=== PATIENT | female | born 1965 | race Caucasian/White ===

== ENCOUNTER → 2021-05-21 13:54 | Outpatient (REF) | payer BC, OTHER, SELFPAY | LOC: ANHLAB 13:54 | PROVIDERS: PCP Physician Assistant; Visit Provider Nurse Practitioner | DX: L72.0 Epidermal cyst (principal) | CPT/HCPCS: 88304 ==

== ENCOUNTER 2021-09-18 08:14 | Outpatient (CLI) | payer BC, OTHER, SELFPAY ==
--- NOTE | 2021-09-18 09:18 | ECG_ITS ---
Measurements Intervals [place] Rate: 59 P: 67 NE: 142 QRS: 30 QRSD: 89 T: 26 QT: 395 QTc: 393 Interpretive Statements SINUS BRADYCARDIA BASELINE ARTIFACT- I, III BORDERLINE ECG Electronically Signed On 09-18-2021 9:42:09 INTERNET DESIGNER by Rolan Gil D.O.
[2021-09-18 10:06] LABS: Basophils Absolute Auto 0.1 K/mm3 (0.0-0.1); Basophils Percent Auto 0.8 % (0.2-1.2); Eosinophils Absolute Auto 0.2 K/mm3 (0-0.3); Eosinophils Percent Auto 2.1 % (0-4.4); Hematocrit 43.3 % (37.0-47.0); Hemoglobin 14.2 g/dL (12.0-15.0); Immature Granulocyte Absolute 0.02 K/mm3 (0.00-0.031); Immature Granulocyte Percent A 0.3 % (0-0.5); Lymphocytes Absolute Auto 1.99 K/mm3 (0.9-3.2); Lymphocytes Percent Auto 26.7 % (18.3-44.2); Mean Corpuscular HGB Conc 32.8 g/dl (32-36); Mean Corpuscular Hemoglobin 32.6 pg (26-34); Mean Corpuscular Volume 99.5 fl (80-100); Mean Platelet Volume 9.3 fl (7.4-10.4); Monocytes Absolute Auto 0.7 K/mm3 (0.1-0.6); Monocytes Percent Auto 9.5 % (2.6-8.5); Neutrophils Absolute Auto 4.5 K/mm3 (1.3-6.7); Neutrophils Percent Auto 60.6 % (45.5-73.1); Platelet Count Result 335 k/mm3 (150-375); Red Blood Count 4.35 M/mm3 (4.2-5.4); Red Cell Distribution Width 12.4 % (11.5-14.5); White Blood Count 7.5 K/mm3 (4.5-10.0)
[2021-09-18 10:08] LABS: Albumin Level 4.6 g/dL (3.5-5.1); Estimated Glomerular Filt Rate > 60; Glucose 96 mg/dL (65-110)
[2021-09-18 10:10] LABS: Hemoglobin A1C 5.3 % (<5.7)
[2021-09-18 10:11] LABS: Urine Cotinine NEGATIVE
== END 2021-09-18 08:15 | disposition home or self-care (01) ==
LOC: ANHSURGERY 08:19
PROVIDERS: PCP Physician Assistant; Visit Provider Orthopaedic Surgery
DX: M17.11 Unilateral primary osteoarthritis, right knee (principal); Z01.818 Encounter for other preprocedural examination; R94.31 Abnormal electrocardiogram [ECG] [EKG]
CPT/HCPCS: 80307; 82040; 82565; 82947; 83036; 85025; 87081; 93005

== ENCOUNTER 2022-03-10 07:48 | Outpatient (CLI) | payer BC, OTHER, SELFPAY ==
[2022-03-10 09:10] LABS: Hemoglobin A1C 5.3 % (<5.7)
[2022-03-10 09:10] LABS: Urine Cotinine NEGATIVE
[2022-03-10 09:12] LABS: Albumin Level 4.1 g/dL (3.5-5.1); Estimated Glomerular Filt Rate > 60; Glucose 96 mg/dL (65-110)
[2022-03-10 09:21] LABS: Basophils Absolute Auto 0.1 K/mm3 (0.0-0.1); Basophils Percent Auto 0.8 % (0.2-1.2); Eosinophils Absolute Auto 0.2 K/mm3 (0-0.3); Eosinophils Percent Auto 2.4 % (0-4.4); Hemoglobin 13.5 g/dL (12.0-15.0); Immature Granulocyte Absolute 0.05 K/mm3 (0.00-0.031); Immature Granulocyte Percent A 0.5 % (0-0.5); Lymphocytes Absolute Auto 3.18 K/mm3 (0.9-3.2); Lymphocytes Percent Auto 32.5 % (18.3-44.2); Mean Corpuscular HGB Conc 32.9 g/dl (32-36); Mean Corpuscular Hemoglobin 32.1 pg (26-34); Mean Corpuscular Volume 97.4 fl (80-100); Mean Platelet Volume 9.1 fl (7.4-10.4); Monocytes Percent Auto 9.9 % (2.6-8.5); Neutrophils Absolute Auto 5.3 K/mm3 (1.3-6.7); Neutrophils Percent Auto 53.9 % (45.5-73.1); Platelet Count Result 360 k/mm3 (150-375); Red Blood Count 4.21 M/mm3 (4.2-5.4); Red Cell Distribution Width 12.8 % (11.5-14.5); White Blood Count 9.8 K/mm3 (4.5-10.0)
== END 2022-03-10 07:49 | disposition home or self-care (01) ==
PROVIDERS: PCP Physician Assistant; Visit Provider Orthopaedic Surgery
DX: M17.11 Unilateral primary osteoarthritis, right knee (principal); Z01.818 Encounter for other preprocedural examination
CPT/HCPCS: 80307; 82040; 82565; 82947; 83036; 85025; 87081

== ENCOUNTER 2022-03-24 02:10 | Day surgery (SDC) | payer BC, OTHER, SELFPAY ==
[2022-03-10 07:59] VITALS: BMI 31.5
--- NOTE | 2022-03-10 08:18 | PC.NURSE ---
Report to the Outpatient Waiting Room, entrance under the green pavilion located off [facility], at time _0830 on date _03/24/22 . OR Time:1030 . - You and your visitor will be asked a series of questions to screen for COVID 19 for your protection. - Only one visitor is allowed at this time. - The patient visitor is requested to leave or wait in car when not with patient. - A mask is required within the hospital. Patients may have clear liquids (water, carbonated beverages, clear teas, apple juice) until 3 hours prior to surgery with a maximum of 20 ounces. - No food from midnight until time of surgery - Infants may have breast milk until 4 hours before surgery, infant formula 6 hours prior to surgery. - Children will be allowed to drink immediately following surgery. If applicable, please bring a bottle or sippy cup to assist with drinking. Juice, water, soda, and popsicles are readily available. For infants on formula, please bring formula the day of surgery. Pacifiers are allowed. Take the following medications with a SIP of water the morning of surgery: ___ATENOLOL Medications to discontinue per physician ___ALL VITAMINS AND SUPPLEMENTS 3 DAYS PRE OP Date to take last dose____03/20/22 Please no make-up, nail panamanian, hairspray, perfume, deodorant, or body powder the day of surgery. No jewelry (including any body piercings) or valuables the day of surgery, leave them at home. Please take a shower or bath the night before, or the morning of, surgery with an antibacterial soap. Wear comfortable, loose fitting clothing. Children are encouraged to wear pajamas. - Jewelry must be removed prior to entering the operating room. Rings and piercings that are not removed may be cut off. - The hospital will not accept responsibility for valuables. - Please leave all valuables, including medications, at home the day of surgery. If you are going home after surgery, a licensed form setter/driver must drive you home. - NO public transportation without another adult. - We recommend that an adult stay with you for 24 hours following discharge. - We also recommend that you do not drive, make important decision, drink alcoholic beverages, or take any drugs that were not prescribed by your health care provider for at least 24 hours after your discharge time. For Pediatric surgeries, we recommend two adults accompany the child home (only one inside the building at this time). Follow any additional instructions given to you from your surgeon. If you or anyone in your household have experienced Covid symptoms in the past week, please notify your surgeon or the nurse liaison at the phone number below for possible testing. VERBAL AND WRITTEN instructions given to __PATIENT and asked if any additional questions and then verbalized understanding. Patient advised to call surgeon office or pre surgery nurse liaison [phone] if any additional questions.
[2022-03-10 08:37] VITALS: BP 122/78; PULSE 71; RESP 18; TEMP 37.2; O2SAT 100
[2022-03-24 06:10] VITALS: BP 141/75; PULSE 64; RESP 16; TEMP 36.2; O2SAT 100
[2022-03-24] MEDS: ACETAMINOPHEN 500 MG TABLET 1000 MG PO (06:11)
--- NOTE | 2022-03-24 07:04 | SUR.PREOP ---
Patient arrived to hospital with red raised areas to outer rt calf. Dr Caceres notified and is cancelling surgery due to proximity to surgical site and risk of infection.
--- NOTE | 2022-03-24 07:11 | WPDHPUPDATE1 ---
History and Physical Update Update Date/Time: 03/24/22 07:11 History and Physical has been reviewed, including an updated exam of the patient. Patient has a rash on both legs that looks like poison melanie or oak. Surgery will be postponed. My office will be in touch with her to reschedule. Discussed with patient and her .
== END 2022-03-24 07:25 | disposition home or self-care (01) ==
PROVIDERS: PCP Physician Assistant; Visit Provider Orthopaedic Surgery
DX: M17.11 Unilateral primary osteoarthritis, right knee (principal); L98.9 Disorder of the skin and subcutaneous tissue, unspecified; Z53.09 Procedure and treatment not carried out because of other contraindication
CPT/HCPCS: 99211; A9270; G0463; J0171; J2270; J2795

== ENCOUNTER 2022-03-28 12:32 | Outpatient (CLI) | payer BC, OTHER, SELFPAY | END 2022-03-28 12:33 | disposition home or self-care (01) | LOC: ANHSURGERY 12:35 | PROVIDERS: PCP Physician Assistant; Visit Provider Orthopaedic Surgery | DX: M17.11 Unilateral primary osteoarthritis, right knee (principal); Z01.818 Encounter for other preprocedural examination | CPT/HCPCS: 87081 ==

== ENCOUNTER 2022-04-07 02:49 | Day surgery (SDC) | payer BC, OTHER, SELFPAY ==
--- NOTE | 2022-03-27 10:37 | PC.NURSE ---
Report to the Outpatient Waiting Room, entrance under the green pavilion located off [facility], at time __0900 on date __04/07/22 . OR Time: _1100 . - You and your visitor will be asked a series of questions to screen for COVID 19 for your protection. - Only one visitor is allowed at this time. - The patient visitor is requested to leave or wait in car when not with patient. - A mask is required within the hospital. Patients may have clear liquids (water, carbonated beverages, clear teas, apple juice) until 3 hours prior to surgery with a maximum of 20 ounces. - No food from midnight until time of surgery - Infants may have breast milk until 4 hours before surgery, infant formula 6 hours prior to surgery. - Children will be allowed to drink immediately following surgery. If applicable, please bring a bottle or sippy cup to assist with drinking. Juice, water, soda, and popsicles are readily available. For infants on formula, please bring formula the day of surgery. Pacifiers are allowed. Take the following medications with a SIP of water the morning of surgery: __ATENOLOL Medications to discontinue per physician NONE Date to take last dose Please no make-up, nail setswana, hairspray, perfume, deodorant, or body powder the day of surgery. No jewelry (including any body piercings) or valuables the day of surgery, leave them at home. Please take a shower or bath the night before, or the morning of, surgery with an antibacterial soap. Wear comfortable, loose fitting clothing. Children are encouraged to wear pajamas. - Jewelry must be removed prior to entering the operating room. Rings and piercings that are not removed may be cut off. - The hospital will not accept responsibility for valuables. - Please leave all valuables, including medications, at home the day of surgery. If you are going home after surgery, a licensed truck driver supervisor must drive you home. - NO public transportation without another adult. - We recommend that an adult stay with you for 24 hours following discharge. - We also recommend that you do not drive, make important decision, drink alcoholic beverages, or take any drugs that were not prescribed by your health care provider for at least 24 hours after your discharge time. For Pediatric surgeries, we recommend two adults accompany the child home (only one inside the building at this time). Follow any additional instructions given to you from your surgeon. If you or anyone in your household have experienced Covid symptoms in the past week, please notify your surgeon or the nurse liaison at the phone number below for possible testing. Telephone instructions given to ___PATIENT and asked if any additional questions and then verbalized understanding. Patient advised to call surgeon office or pre surgery nurse liaison [phone] if any additional questions.
--- NOTE | 2022-03-27 10:46 | PC.NURSE ---
PT STATES NO CHANGE IN HEALTH HX SINCE LAST INTERVIEW ON 03/10/22 DID STATE QUESTIONABLE BUG BITES/POISON YOSEF IS BETTER
--- NOTE | 2022-03-28 10:31 | PC.NURSE ---
PT NOTIFIED THAT DR HARKINS REQUESTS REPEAT MRSA SCREENING PRIOR TO SURGERY. SHE RELAYS UNDERSTANDING AND PLANS TO COME IN LATER TODAY FOR THAT. STATES NO CHANGE IN ASSESSMENT EXCEPT THAT LEG BUG BITES OR POISON YOSEF IS IMPROVING AND SHE WILL SEE DR HARKINS IN OFFICE ON 04/03/22 PRIOR TO SURGERY.
[2022-04-07] VITALS (16 sets, daily range): BP systolic 110–139; BP diastolic 61–76; PULSE 46–76; RESP 10–20; TEMP 36.2–37.3; O2SAT 97–100; BMI 31.2
--- NOTE | ~2022-04-07 | XR_ITS ---
EXAM: XR knee RT 2V DATE: 04/07/2022 14:33 HISTORY: RT TOTAL KNEE . COMPARISON: 03/28/2021. FINDINGS: Interval ACL anchor removal and right total knee arthroplasty, with expected postsurgical change in the soft tissues. Hardware is appropriately aligned, without abnormal perihardware lucency. No unexpected radiopaque foreign body. IMPRESSION: Postoperative views, status post right total knee arthroplasty, no radiographic evidence of procedure or hardware related complication. Reviewed, dictated and finalized at location K.
--- NOTE | 2022-04-07 06:26 | WPDANESEPPF ---
Anes - Initial Pre Proc Eval Procedure: Operation Date: 04/07/22 11:00 Proposed Procedures p Right Total Knee Arthroplasty - Gerald Caceres MD Date/Time: 04/07/22 06:26 Surgeon: Gerald Caceres MD Pre Op Diagnosis: OA right knee Patient Data Age: 56 Gender: F Height: Weight: Allergies Allergy/AdvReac Type Severity Reaction Status Date / Time No Known Allergies Allergy Unknown Verified 04/03/22 09:20 Home Medications Medication Instructions Recorded Confirmed Type atenolol 25 mg tablet 25 mg PO DAILY 03/26/21 04/03/22 History acetaminophen 650 mg 1,300 mg PO Q12H PRN Pain 09/18/21 04/03/22 History tablet,extended release (Tylenol Arthritis Pain) Patient hx anesthesia problems: post op nausea/vomiting Family hx anesthesia problems: none Results Review: All pre-operative results and documents have been reviewed as part of the pre-operative evaluation. [facility] Past Medical History Medical History Arthritis High blood pressure Osteoarthritis of right knee Surgical History Surgical History History of appendectomy 2008 History of left hip replacement 04/2011 History of repair of ACL right ACL reconstruction - 03/2009 Family History Family History Mother Hypertension Social History Social History Smoking packs per day: 0.5 Smoking cigarettes per day: 10.0 Years smoked: 25 Smoking pack-years: 12.50 Tobacco type: cigarettes Smoking end date: 10/19/09 Additional smoking assessment comments: DENIES ANY FORM OF TOBACCO USE Alcohol intake: never Additional occupation/education comments: [employer] Gender identity (if verbalized by the patient): Female Spiritual care concerns: No Anes - Eval Final PreProcedure Day of Procedure 04/07/22 06:26 Patient weight: obese Heart: regular rate and rhythm Lungs: clear to auscultation and normal air movement Airway: Mallampati scale class II Neurological: alert and oriented Last oral intake: >/= 8 hours ASA classification: III Emergent: no Anesthetic plan: proceed Anesthesia type and monitoring: regional spinal and standard monitoring Results Review: All pre-operative results and documents have been reviewed as part of the pre-operative evaluation. Informed Consent: The patient's anesthetic plan and its attendant risks and benefits were discussed with the patient/family/POA. Questions were solicited and answers provided to the satisfaction of the patient/family/POA.
[2022-04-07] MEDS: ACETAMINOPHEN 500 MG TABLET 1000 MG PO (09:46)
[2022-04-07] MEDS: LACTATED RINGERS 1,000 ML 30 ML IV CONT ×2 (10:00→14:21)
--- NOTE | 2022-04-07 10:35 | WPDHPUPDATE1 ---
History and Physical Update Update Date/Time: 04/07/22 10:35 History and Physical has been reviewed, including an updated exam of the patient. There are NO changes in the patient's condition. Risks, benefits, and alternatives have been discussed and questions answered. Patient agrees to proceed with procedure.
[2022-04-07] MEDS: TRANEXAMIC ACID 1,000MG/ISO100 1,000 MG/100 ML BAG 200 MG IVPB (11:00)
--- NOTE | 2022-04-07 11:05 | WPDANESPNB ---
Anes - Peripheral Nerve Block Date/Time: 04/07/22 11:05 I have discussed with the patient/family/POA the placement of a peripheral nerve block for post-operative pain management, including associated risks, benefits, complications, and side effects. Alternative methods of post-operative analgesia were detailed. Questions were solicited and answers provided to the satisfaction of the patient/family/POA. Time-Out: A pre-procedural Time-Out was completed immediately before starting the procedure and confirmed: Patient Identification, Site, Procedure, Patient Position and the Availability of Requisite Equipment. Clinical Indications: Acute post-operative pain management requested by the operative surgeon. Nerve Block Insertion Note Anes-nerve block: adductor canal right Patient position: supine Skin prep: chlorhexidine Needle: 22 gauge, stimulating, insulated echogenic needle. Needle length: 80 mm Technique: ultrasound Injectate: bupivacaine 0.5% with epi 5 mcg/ml (30cc - no epi) Observations: tolerated well Complications: none Procedure start time:: 1100 Procedure end time:: 3
[2022-04-07] MEDS: ceFAZolin 2 GM/D5W 50 ML 2 GM/50 ML BAG IVPB ×2 (11:35→19:02)
--- NOTE | 2022-04-07 14:06 | W.PM.PROC2 ---
Procedure Note - Detailed Date of Procedure 04/07/22 Pre-op Diagnosis OA right knee Post-op Diagnosis Same Procedure Performed Right total knee replacement Surgeon Gerald Caceres MD Manager Social Shiloh Germain Anesthesia Regional and Spinal Description of Procedure The patient was identified and proper site identified. In the preop holding area the anesthesia team performed a right-sided sub sartorial block after which the patient was taken to the operating room and transferred to the OR table positioning supine taking care to pad the torso and extremities. After spinal anesthetic was administered a nonsterile tourniquet was placed high on the right thigh. The right lower extremity was prepped and draped in the usual sterile fashion. The extremity was exsanguinated and with the knee flexed tourniquet was inflated to 300 mmHg remaining up for approximately 72 minutes. An anterior midline incision was made and a modified medial parapatellar approach was used. Infra and suprapatellar fat pads were excised. Patella was resected leaving 15 mm thickness and prepared for the size 31 round three peg component. Using the intramedullary guide the distal femur was cut in the proper orientation for the size 65 femoral component. Using the extramedullary guide the tibia was cut perpendicular to the long axis protecting collateral ligaments and popliteal structures. It was sized to a 67. Flexion and extension gaps were balanced. Trial reduction was undertaken and the weight-bearing line was noted to passed through the center of the joint. Proximal tibia was drilled and punched in the proper orientation for the real component. Trial components were removed. The bone surfaces were washed with pulsatile lavage and dried. The real components were cemented simultaneously. The knee was held in extension and the patella held clamped until the cement had cured. Excess cement was removed from the joint. After trialing it was determined that the 10 mm insert gave full range of motion from 0-120 degrees of flexion and the patella tracked in the femoral groove with no lift-off. After final lavage the joint the real 10 E poly insert was placed and secured with a locking bar. A Betadine and saline wash was placed into the wound and allowed to sit for approximately 3 minutes and then evacuated. Periarticular tissues were infiltrated with 60 cc of the arthroplasty solution. Surgicel powder was used for supplemental hemostasis. The extensor mechanism was repaired with #2 Vicryl suture and 0 looped PDS suture. Subcu was reapproximated with 3-0 Monocryl and 2-0 Quill with tissue adhesive the skin. A sterile dressing was applied. She tolerated the procedure well, was awakened and extubated, transferred to the bed and was taken to recovery area in stable condition. There were no known intraoperative complications. Perioperative antibiotics were administered. Estimated Blood Loss 50 Tourniquet Time 72 Drains No Packing No Pathology None sent Complications No immediate complications Condition Stable
[2022-04-07] MEDS: fentaNYL CITRATE INJ (*CRX) 100 MCG/2 ML VIAL 25 MCG IV PUSH (14:34)
[2022-04-07] MEDS: ONDANSETRON INJ 4 MG/2 ML VIAL IV PUSH (16:03)
[2022-04-07] MEDS: SODIUM CHLORIDE 0.9% IV 1,000 ML 125 ML IV CONT (16:54)
[2022-04-07] MEDS: oxyCODONE/ACETAMINOPHEN (*CRX) 5-325 MG TABLET 1 TABLET PO ×2 (17:07→21:09)
[2022-04-07] MEDS: SENNA/DOCUSATE SODIUM TABLET 2 TAB PO (17:16)
[2022-04-07] MEDS: KETOROLAC 15 MG/ML VIAL (*BKC) IV PUSH ×2 (18:06→23:44)
[2022-04-07] MEDS: oxyCODONE HCL (*CRX) 5 MG TAB IR PO (19:01)
[2022-04-07] MEDS: FAMOTIDINE 20 MG TABLET PO (22:39)
[2022-04-08] MEDS: oxyCODONE/ACETAMINOPHEN (*CRX) 5-325 MG TABLET 1 TABLET PO ×2 (01:20→13:01)
[2022-04-08 03:36] VITALS: BP 115/56; PULSE 72; RESP 20; TEMP 36.2; O2SAT 98
[2022-04-08] MEDS: ceFAZolin 2 GM/D5W 50 ML 2 GM/50 ML BAG IVPB ×2 (03:37→11:55)
--- NOTE | 2022-04-08 03:55 | PC.NURSE ---
Pt has not urinated since lo removal at 1700 (04/07), pt bladder scan at 0355 (04/08) shows max of 267ml
[2022-04-08] MEDS: SODIUM CHLORIDE 0.9% IV 500 ML 999 ML IV CONT (05:29)
[2022-04-08] MEDS: ONDANSETRON INJ 4 MG/2 ML VIAL IV PUSH (05:29)
[2022-04-08 05:43] LABS: Hematocrit 33.3 % (37.0-47.0); Hemoglobin 10.7 g/dL (12.0-15.0); Mean Corpuscular HGB Conc 32.1 g/dl (32-36); Mean Corpuscular Hemoglobin 31.8 pg (26-34); Mean Corpuscular Volume 98.8 fl (80-100); Mean Platelet Volume 9.3 fl (7.4-10.4); Platelet Count Result 240 k/mm3 (150-375); Red Blood Count 3.37 M/mm3 (4.2-5.4); Red Cell Distribution Width 12.7 % (11.5-14.5); White Blood Count 14.3 K/mm3 (4.5-10.0)
[2022-04-08 05:55] LABS: Anion Gap 1 mmol/L (8-16); Blood Urea Nitrogen 10 mg/dL (7-17); Calcium 7.8 mg/dL (8.4-10.2); Carbon Dioxide 26 mmol/L (22-30); Chloride 101 mmol/L (98-107); Estimated CRCL calculation 104 ml/min; Estimated Glomerular Filt Rate > 60; Glucose 113 mg/dL (65-110); Potassium 3.6 mmol/L (3.4-5.0); Sodium 128 mmol/L (137-145)
--- NOTE | 2022-04-08 06:07 | PC.NURSE ---
Dr Caceres notified pt experiencing N/V and has not urinated since removal of lo catheter. Order received for 500ml NS bolus, zofran PRN, BMP and CBC lab draw.
[2022-04-08] MEDS: KETOROLAC 15 MG/ML VIAL (*BKC) IV PUSH ×2 (06:11→11:55)
[2022-04-08 09:44] VITALS: PULSE 75
[2022-04-08] MEDS: RIVAROXABAN 10 MG TABLET PO (09:44)
[2022-04-08] MEDS: atenoloL 25 MG TABLET PO (09:44)
[2022-04-08] MEDS: FAMOTIDINE 20 MG TABLET PO (09:45)
[2022-04-08 10:11] VITALS: BP 99/50; PULSE 79; RESP 16; TEMP 36.3; O2SAT 100
--- NOTE | 2022-04-08 11:53 | WPDANESPN ---
Anes - Prog Note Post-Op Date/Time: 04/08/22 11:53 Cardiovascular status: normal Respiratory status: normal Airway patency: baseline Mental status: baseline Post-Op hydration status: normal Vital Signs: Last Vital Signs Temp 97.4 F L 04/08/22 10:11 Pulse 79 04/08/22 10:11 Resp 16 04/08/22 10:11 BP 99/50 L 04/08/22 10:11 Pulse Ox 100 04/08/22 10:11 O2 Del Method Room Air 04/08/22 08:28 Pain Score (VAS): 6 I/O: Intake & Output 04/07/22 04/08/22 04/08/22 23:59 07:59 15:59 Intake Total 400 2040 200 Output Total 300 Balance 400 2040 -100 Laboratory Tests 04/08/22 05:26 04/08/22 05:26 04/08/22 04/08/22 05:26 05:26 WBC 14.3 H RBC 3.37 L Hgb 10.7 L Hct 33.3 L MCV 98.8 MCH 31.8 MCHC 32.1 RDW 12.7 Plt Count 240 MPV 9.3 Sodium 128 L Potassium 3.6 Chloride 101 Carbon Dioxide 26 Anion Gap 1 L BUN 10 Creatinine 0.60 L Estim Creat Clear Calc 104 Estimated GFR > 60 Glucose 113 H Calcium 7.8 L Patient Feedback: Patient satisfied with anesthetic care. Other Findings: pt states nerve block receded approx 1600. verbalized poor relief from block
--- NOTE | 2022-04-08 11:59 | PM.DS ---
DS: Admitting Diagnosis Discharge Date 04-08-2022 Admitting Diagnosis right knee osteoarthritis DS: Discharge Diagnosis Discharge Diagnosis (1) Status post total right knee replacement: Code(s): Z96.651 - Presence of right artificial knee joint Status: Acute Plan 56-year-old female postop day 1 after total right knee replacement with Dr. Caceres. She did have some trouble urinating after the Mauricio catheter was removed which she was given a 500 mL bolus of fluid and has started to urinate this morning. She is also feeling somewhat nauseous so I will send her home with some Zofran as needed. Plan to follow-up in 2 weeks with wound check. She was informed to call our office with any further questions or concerns prior to this next appointment. DS: Summary Hospital Course Reason for hospitalization: Observation after outpatient procedure Hospital Course: 56-year-old female who underwent right total knee replacement with Dr. Caceres on 04/07/2022. She was admitted for observation and saw therapy this morning and plan to see her again this afternoon prior to discharge. She did have some troubles with urination after the Mauricio catheter was removed but has started to urinate this morning. Labs were checked this morning which shows normal kidney function. 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 Status at Discharge Functional status at discharge: uses cane/walker Overall status at discharge: patient is progressing back to baseline Time Spent with Patient Time attestation: Total time spent providing and/or coordinating discharge services: Time spent: Less than 30 minutes Exam Const: General: comfortable and no acute distress Eyes: General: appearance normal, both eyes and all related structures Resp: Effort & Inspection: normal respiratory effort Skin: General skin exam: normal color Extrem: Other: Exam of the right knee reveals a clean and dry surgical dressing. Mild swelling around the surgical site. She is able to wiggle her toes without difficulty. She denies any numbness or tingling down the leg. Neurovascular status of the right lower extremity is unremarkable. Psych: Mental Status: mental status grossly normal DS: Data Data Completed and Pending Labs on day of discharge: Labs from last 24 hours 04/08/22 04/08/22 05:26 05:26 WBC 14.3 H RBC 3.37 L Hgb 10.7 L Hct 33.3 L MCV 98.8 MCH 31.8 MCHC 32.1 RDW 12.7 Plt Count 240 MPV 9.3 Sodium 128 L Potassium 3.6 Chloride 101 Carbon Dioxide 26 Anion Gap 1 L BUN 10 Creatinine 0.60 L Estim Creat Clear Calc 104 Estimated GFR > 60 Glucose 113 H Calcium 7.8 L Discharge Plan Discharge Patient Disposition: Home, Self-Care Discharge Instructions: 3 times daily for 20 minutes each time, reclining in bed with ice packs over the incision and a pillow underneath the calf of the affected leg, not under the knee. Your wound is glued so it is okay to remove the dressing, get into the shower and get the wound wet in two days. Be sure to read through all the information that came from a my office and the hospital. Most of the answers you will need can be found that material. Call the office with any questions that you cannot find answers to, or concerns you may have. After the Xarelto is completed, start taking one coated 325 mg aspirin daily and do this for four more weeks. Please call [facility] at as soon as possible to arrange for/verify your follow-up appointment to be seen in 2 weeks. Also, call the office with any orthopedic/surgical related questions prior to follow-up. Be sure to get up and move around several times daily but do not overdo it. Take the arthritis formula Tylenol 650 mg tablet on an 8 hour schedule. A good 8 hour schedule is: 6:00 a.m., 2:00 p.m., 10:00 p.m. you may take the prescribed pain medication along
== END 2022-04-08 14:30 | disposition home or self-care (01) ==
LOC: ANHSURGERY 14:01 → ANH2MED 16:33
PROVIDERS: PCP Physician Assistant; Visit Provider Orthopaedic Surgery
PROC: (CPT 27447; principal; 2022-04-07 11:00)
DX: M17.11 Unilateral primary osteoarthritis, right knee (principal); G89.18 Other acute postprocedural pain; I10 Essential (primary) hypertension; Z87.891 Personal history of nicotine dependence; E66.9 Obesity, unspecified; Z68.31 Body mass index [BMI] 31.0-31.9, adult
CPT/HCPCS: 27447; 64447; 36415; 73560; 80048; 85027; 86850; 86900; 86901; 97110; 97161; 97165; 97530; A9270; C1713; C1776; J0171; J0690; J1885; J2250; J2270; J2405; J2704; J2795; J3010; J3370; J7030; J7040; J7120

== ENCOUNTER 2023-08-18 07:00 | Outpatient (NON) | payer OTHER, SELFPAY | END 2023-08-18 07:01 | disposition home or self-care (01) | LOC: ANHLAB 08-19 13:17 | PROVIDERS: PCP Physician Assistant; Visit Provider Nurse Practitioner | DX: L57.0 Actinic keratosis (principal) | CPT/HCPCS: 88305 ==

== ENCOUNTER 2024-04-19 09:30 | Outpatient (RCR) | payer OTHER, SELFPAY ==
--- NOTE | 2024-01-26 09:52 | OPREHPOC ---
Outpatient Therapy Plan of Care This is a Multidisciplinary Plan of Care that may contain components documented by all disciplines (PT, OT, and ST.) PT Problem 1 PT Problem #1 Knowledge Deficit PT Goal 1 Goal 1. Patient will perform independent HEP Target Visit 3 PT Problem 2 PT Problem #2 Impaired Strength PT Goal 1 Goal 1. Improve pelvic floor strength to 5/5 to decrease incontinence and symptoms of prolapse Target Visit 6 PT Problem 3 PT Problem #3 Impaired Functional ADLs PT Goal 1 Goal 1. Patient will report no more than 1 instance of incontinence a week Target Visit 6
--- NOTE | 2024-01-26 09:52 | PTOPEVAL1 ---
Assessment and note entered by Zahida Macedo DPT Evaluation Information Assessment Status Evaluation Subjective Information Pt reports she is dealing with urinary incontinence and possibly a prolapse. Incontinence has been occurring for 5 years and has worsened somewhat over time. Wears pads all the time, sometimes would have to change her clothes if she did not have one on. Voids less than 10 times a day, 1 time at night. Incontinence 3-4 times a day , small volume, and occurs more often with cough, sneeze, laughing, but sometimes also while on the way to the bathroom. Can hold urge to void at least 30 minutes but starts to struggle once she stands up. Denies pain with urination. BM 3-4 times a week, denies pain. No fecal incontinence typically. Denies history of pelvic pain. Pt has been 2 times with 1 vaginal and 1 C- section delivery. Episiotomy with the vaginal delivery. 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 No other b/b issues. Patient goal: get rid of incontinence and not wear pads No return to MD scheduled Reported Pain Level Pain Score 0: Self Report Assessment PT Clinical Summary The patient is presenting to skilled therapy with a history of worsening urinary incontinence and pelvic organ prolapse. She presents with decreased core and pelvic floor strength which are contributing to her daily incontinence and pad use . She will highly benefit from therapy to address these impairments in order to reduce incontinence and improve function. Plan of Care Interventions Manual Therapy,Neuro Re-education,Patient/ Caregiver Education,Therapeutic Activities, Therapeutic Exercise PT Services Indicated Yes Treatment Frequency and 1 time a week x 6 visits Duration These treatments will address the objective and functional deficits as defined above. The patient will be advanced safely and appropriately in order for the patient to progress towards his/her prior level of function. Additional exercises will be introduced and as well as a comprehensive home exercise program upon discharge, if needed, ?to ensure carryover of functional gains achieved in the clinic. This treatment plan has been reviewed and agreement upon by the patient.
--- NOTE | 2024-03-16 08:12 | PCPTNOTE ---
Patient called to cancel appointment on 03/16/24 due to personal conflict.
--- NOTE | 2024-03-22 14:56 | OPREHPOC ---
Outpatient Therapy Plan of Care This is a Multidisciplinary Plan of Care that may contain components documented by all disciplines (PT, OT, and ST.) PT Problem 1 PT Problem #1 Knowledge Deficit PT Goal 1 Goal 1. Patient will perform independent HEP Target Visit 3 Progress Met PT Problem 2 PT Problem #2 Impaired Strength PT Goal 1 Goal 1. Improve pelvic floor strength to 5/5 to decrease incontinence and symptoms of prolapse Target Visit 6 Progress Partially Met Comment improved to 4/5 PT Problem 3 PT Problem #3 Impaired Functional ADLs PT Goal 1 Goal 1. Patient will report no more than 1 instance of incontinence a week Target Visit 6 Progress Partially Met Comment 1 a day
--- NOTE | 2024-03-22 14:56 | PTOPPROG ---
Assessment and note entered by Zahida Macedo DPT Evaluation Information Assessment Status Progress Subjective Information Pt reports over the last week she is voiding 6 times a day. Incontinence is occurring a small amount one time a day, is wearing a liner throughout the day. Pt states that therapy has been helpful so far but has not been able to do her exercises all the time due to finishing up the school year and retiring. Now feels she will be more able to focus on attending therapy. Assessment PT Clinical Summary The patient has made good progress so far in therapy. She reports decreased frequency of incontinence to once a day and demonstrates improved core and pelvic floor strength. Due to her progress but continued incontinence, she will benefit from further therapy to return to prior level of function. Plan of Care Interventions Manual Therapy,Neuro Re-education,Patient/ Caregiver Education,Therapeutic Activities, Therapeutic Exercise PT Services Indicated Yes Treatment Frequency and 1 time a week for 4 visits Duration These treatments will address the objective and functional deficits as defined above. The patient will be advanced safely and appropriately in order for the patient to progress towards his/her prior level of function. Additional exercises will be introduced and as well as a comprehensive home exercise program upon discharge, if needed, ?to ensure carryover of functional gains achieved in the clinic. This treatment plan has been reviewed and agreement upon by the patient.
--- NOTE | 2024-04-19 10:19 | OPREHPOC ---
Outpatient Therapy Plan of Care This is a Multidisciplinary Plan of Care that may contain components documented by all disciplines (PT, OT, and ST.) PT Problem 1 PT Problem #1 Knowledge Deficit PT Goal 1 Goal 1. Patient will perform independent HEP Target Visit 3 Progress Met PT Problem 2 PT Problem #2 Impaired Strength PT Goal 1 Goal 1. Improve pelvic floor strength to 5/5 to decrease incontinence and symptoms of prolapse Target Visit 9 Progress Partially Met Comment improved to 4/5 PT Problem 3 PT Problem #3 Impaired Functional ADLs PT Goal 1 Goal 1. Patient will report no more than 1 instance of incontinence a week Target Visit 9 Progress Partially Met Comment 3-4 times per week
--- NOTE | 2024-04-19 10:19 | PTOPPROGNS ---
Assessment and note entered by Zahida Macedo DPT Evaluation Information Assessment Status Progress Subjective Information Pt reports improvements with therapy. Is wearing a liner less often. Did a lot of heavy yard work yesterday without any leakage. Incontinence 3-4 times over the last week. Feels confident attempting HEP independently at this point. Assessment PT Clinical Summary The patient has made good progress in therapy and reports incontinence is no longer happening daily and she has less reliance on pad or liner use. She demonstrates overall progress in pelvic floor strength, endurance, and coordination. Based on patient's progress, plan to hold therapy at this time pending discharge. Plan of Care Interventions PT Services Indicated No Treatment Frequency and hold therapy, tentative discharge Duration These treatments will address the objective and functional deficits as defined above. The patient will be advanced safely and appropriately in order for the patient to progress towards his/her prior level of function. Additional exercises will be introduced and as well as a comprehensive home exercise program upon discharge, if needed, ?to ensure carryover of functional gains achieved in the clinic. This treatment plan has been reviewed and agreement upon by the patient.
== END 2024-04-25 23:59 | disposition home or self-care (01) ==
LOC: ANHPT 09:30
PROVIDERS: PCP Physician Assistant; Visit Provider Physician Assistant
DX: N39.3 Stress incontinence (female) (male) (principal)
CPT/HCPCS: 97112; 97161; 97530

== ENCOUNTER 2024-08-10 13:15 | Outpatient (RCR) | payer OTHER, SELFPAY ==
--- NOTE | 2024-05-18 14:48 | PTOPEVAL1 ---
Assessment and note entered by Sheila Tapia, PT Evaluation Information Assessment Status Evaluation Diagnosis Trochanteric Bursitis R, Presence of L artificial hip ICD-10 Condition Codes (PT) Pain in right hip M25.551,Pain in left hip M25.552 ,Weakness R53.1 Onset Nov 2023 Subjective Information Pt has been on prednisone and feels much better. Prior to prednisone getting, dressing, rolling over in bed was all painful. left hip replacement 11-12 years ago, dislocated 4 weeks post. Has had pain here and there since that point. Right knee replacement 2 years ago Pt reports in November as a side sleeper noted pain sleeping on the side. It gradually increased. 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 Pt reports prior to prednisone everything felt tight Has noticed in the last few years weakness in the quads and pain. history of low back issues/arthritis. Just went through pelvic floor therapy with Zahida Reported Pain Level Pain Score 0,0: Self Report Assessment PT Clinical Summary Pt presents with history of trochanteric bursitis of the right hip and left hip joint replacement. She has been on ~one week of prednisone thus is feeling much improved related to her pain. However evaluation shows (+) iliotibial band tension and adhesions R>L, hamstring and quad flexibility issues, mild core strength deficits, moderate hip strength deficits, and (+) trendelenburg for gluteus medius weakness R>L. Pt will greatly benefit from physical therapy to address deficits, reduce pain post-prednisone completion, and promote independent home exercises to maintain strength and function without pain. Plan of Care Interventions Electrical Stimulation,Gait Training,Hot Pack/Cold Pack,Manual Therapy,Neuro Re-education,Patient/ Caregiver Educati,Therapeutic Activities, Therapeutic Exercise,Self-Care/Home Management, Other Other Interventions no hot pack on LEFT hip joint, kinesiotaping PT Services Indicated Yes Treatment Frequency and 1-2x weekly x 10 visits Duration These treatments will address the objective and functional deficits as defined above. The patient will be advanced safely and appropriately in order for the patient to progress towards his/her prior level of function. Additional exercises will be introduced and as well as a comprehensive home exercise program upon discharge, if needed, ?to ensure carryover of functional gains achieved in the clinic. This treatment plan has been reviewed and agreement upon by the patient.
--- NOTE | 2024-05-18 14:48 | OPREHPOC ---
Outpatient Therapy Plan of Care This is a Multidisciplinary Plan of Care that may contain components documented by all disciplines (PT, OT, and ST.) PT Problem 1 PT Problem #1 Knowledge Deficit PT Goal 1 Goal Pt will be independent in HEP Pt will verbalize understanding of diagnosis and prognosis Target Visit 5 PT Problem 2 PT Problem #2 Pain PT Goal 1 Goal Pt will report greatest pain level at 3/10 or less to improve ADLs and activities Target Visit 5 PT Goal 2 Goal Pt will report resolution of pain with all activities to return to PLOF Target Visit 10 PT Problem 3 PT Problem #3 Impaired Flexibility PT Goal 1 Goal Gastrocs will only show mild flexibility deficit Target Visit 10 PT Goal 2 Goal Hamstrings and quads will gain 10 degrees flexibility Target Visit 10 PT Problem 4 PT Problem #4 Impaired Strength PT Goal 1 Goal Pt will demo equal strength RLE and LLE in all tested planes Target Visit 5 PT Goal 2 Goal Pt will demo strength of 4/5 in all tested planes Target Visit 10
--- NOTE | 2024-05-23 13:12 | PCPTNOTE ---
Pt called and stated she would be unable to make her appointment. No reason given.
--- NOTE | 2024-07-01 17:34 | PTOPPROG ---
Assessment and note entered by Sheila Tapia, PT Evaluation Information Assessment Status Progress Diagnosis Trochanteric Bursitis R, Presence of L artificial hip ICD-10 Condition Codes (PT) Pain in right hip M25.551,Pain in left hip M25.552 ,Weakness R53.1 Onset Nov 2023 Subjective Information Self perceived improvement: 80% Still had some pain over the weekend, was on her feet all day. That evening when sat down hip and back hurt. States some of discomfort related to high level activities and some related to flare up . Feels like the bursitis is still there. Back is a 1-2/10 currently right sided in the area of the shot. Getting up and down from the floor still painful, sometimes bending over and is trying to be more conscious of her form with bending and quads feel stronger. Sometimes with first getting out of bed in the morning. Assessment PT Clinical Summary Pt has attended therapy consistently for trochanteric bursitis of right hip. Hx of R TKR and L THR, received a steroid shot for her bursitis which helped significantly but she continued to have pain. Since initiation of therapy she has improved in her stability and strength, flexibility, and function with less pain . She reports however she still feels weak and that the bursitis is still there though is 80% improved. Pt demo's today decreased knowledge of appropriate alignment with activities such as getting up and down from floor and inability to perform high level activities such as lunges to assist in her functional mobility. She also cont to have flexibility and strength deficits that further therapy could continue to improve. Thus patient would benefit from cont therapy to cont to progress these deficits, and educate pt on independent progression beyond completion of therapy. Plan of Care Interventions Electrical Stimulation,Gait Training,Hot Pack/Cold Pack,Manual Therapy,Neuro Re-education,Patient/ Caregiver Educati,Therapeutic Activities, Therapeutic Exercise,Self-Care/Home Management, Other Other Interventions no hot pack on LEFT hip joint, kinesiotaping PT Services Indicated Yes Treatment Frequency and 1x weekly x 6 weeks Duration These treatments will address the objective and functional deficits as defined above. The patient will be advanced safely and appropriately in order for the patient to progress towards his/her prior level of function. Additional exercises will be introduced and as well as a comprehensive home exercise program upon discharge, if needed, ?to ensure carryover of functional gains achieved in the clinic. This treatment plan has been reviewed and agreement upon by the patient.
== END 2024-08-16 23:59 | disposition home or self-care (01) ==
LOC: ANHHIPT 13:15
PROVIDERS: PCP Physician Assistant; Visit Provider Orthopaedic Surgery
DX: M70.61 Trochanteric bursitis, right hip (principal); Z96.642 Presence of left artificial hip joint
CPT/HCPCS: 97014; 97110; 97112; 97140; 97161; 97530; 97750; G0283